=== PATIENT | male | born 1970 | race Caucasian/White ===

== ENCOUNTER 2017-06-28 09:57 | Observation (INO) | payer MEDICAID, SELFPAY ==
[2017-06-28] VITALS (8 sets, daily range): BP systolic 121–141; BP diastolic 73–85; PULSE 76–110; RESP 16–18; TEMP 36.2–37.1; O2SAT 92–95; BMI 26.6; BMI 26.1
--- NOTE | 2017-06-28 10:25 | ED.RN ---
[facility] CONTACTED TO SEE THE PT
--- NOTE | 2017-06-28 10:26 | ED.VISSUMM ---
- ER Visit Summary Date of Service: 06/28/17 Chief Complaint: Alcohol dependence History of Present Illness: The patient is a 47 M is here requesting help with his alcohol drinking. For the past week he has been drinking a gallon of vodka per day. Before that he was drinking about 1/5 per day. His father in April. He also lost his job. He has been drinking to help cope with this. He is admitted here with [facility] in April. His last drink was approximately 5 hours ago. Physical Examination: Vital signs reviewed. HEENT exam unremarkable. Heart is regular rate and rhythm without murmurs. Lungs are clear to auscultation. Abdomen is soft and nontender. Extremities reveal no edema. Skin exam normal. Neurologic exam normal. Patient does appear slightly intoxicated with alcohol Test Results: Alcohol level 409 Emergency Department Course and Treatment: Patient will be admitted to the hospital. [facility] did see him and they will manage his care on the floor Treatment Plan: [] Disposition: Admit Impression: Alcohol dependence This note was generated with [employer] It [employer] dictation software. It may contain incorrect words, spelling, and punctuation that were not noted in review of the chart prior to signing ED Disposition - Plan for ED Patient: Chief Complaint: Subst Abuse Referrals: Wicho Membreno NP-C [Primary Care Provider] -
[2017-06-28 10:50] LABS: Absolute Lymphocyte Count 2.02 X10^3/ul (0.83-4.51); Basophil# 0.03 X10^3/uL; Basophil% 0.6 % (0-1); Eosinophil# 0.03 X10^3/uL; Eosinophils% 0.6 % (0-5); Hematocrit 41.4 % (40-54); Hemoglobin 13.9 g/dl (13.0-16.5); Lymphocyte # 2.02 X10^3/ul (4.0); Lymphocyte % 37.1 % (19-41); Mean Corp Hgb Conc 33.6 g/gl (32-36); Mean Corpuscular Hgb 31.9 pg (27.0-32.0); Mean Platelet Vol. 8.6 fl (6.2-12.0); Monocyte# 0.31 X10^3/uL; Monocyte% 5.7 % (0-10); Neutrophil # 3.04 X10^3/uL (2.7-7.7); Neutrophil % 55.8 % (47-70); Platelet Count 242 K/mm3 (150-450); RBC Distribution Width SD 43.9 fl (35.1-43.9); Red Blood Count 4.36 M/mm3 (4.6-6.2); White Blood Count 5.4 K/mm3 (4.4-11.0)
[2017-06-28 10:54] LABS: POSITIVE COUNT NO; POSITIVE DIFFERENTIAL NO; POSITIVE MORPHOLOGY NO
[2017-06-28 11:13] LABS: ALB/GLOB Ratio 1.2 RATIO (0.9-2.4); AST(SGOT) 67 U/L (15-37); Alanine Aminotransfer ALT/SGPT 61 U/L (16-61); Alkaline Phosphatase 56 U/L (45-117); Anion Gap 14 (5-15); BUN 14 mg/dL (7-18); Calcium,Total 7.9 mg/dL (8.5-10.1); Chloride 107 mmol/L (98-107); Creatinine, Serum 0.93 mg/dL (0.70-1.30); EST Glomerular Filtration Rate 92 mL/min (>60); Est Glom Filt Rate - Afr Amer 111 mL/min (>60); Estimated Creatinine Clearance 97.14 ml/min; Globulin 3.3 g/dL (2.2-4.2); Glucose 72 mg/dL (74-106); Potassium 3.4 mmol/L (3.5-5.1); Protein, Total 7.3 g/dL (6.4-8.2); Sodium Level 146 mmol/L (136-145)
[2017-06-28 12:18] LABS: Amphetamine Urine VISTA NEGATIVE (<1000 ng/mL); Barbiturate Urine VISTA NEGATIVE (< 200 ng/mL); Benzodiazepine Urine VISTA NEGATIVE (< 200 ng/mL); Cocaine Urine VISTA NEGATIVE (< 300 ng/mL); Ecstacy Urine VISTA NEGATIVE (< 500 ng/mL); Methadone Urine VISTA NEGATIVE (< 300 ng/mL); PCP Urine VISTA NEGATIVE (< 25 ng/mL); THC Urine VISTA NEGATIVE (< 50 ng/mL); Vista UDS pH Range 6
[2017-06-28 13:26] LABS: Amylase 74 U/L (25-115); Lipase 324 U/L (73-393)
--- NOTE | 2017-06-28 13:40 | HP.PCM_ITS ---
Problem List (1) Insomnia Status: Acute (2) Continuous chronic alcoholism Status: Chronic (3) Alcohol withdrawal Status: Acute Qualifiers: History of Present Illness Date of Admission: 06/28/17 Chief Complaint: I want to get detoxed from alcohol This is a 47 year old M with history of chronic alcohol use disorder who presented to the emergency room and asked for help to get detoxed. His last drink was about 5 hours prior to coming to the emergency room, his alcohol level was 409. He wants to get detoxed, he does not want to drink anymore. The patient was admitted here in April of last year under the [facility] program after his discharge he did not go for an inpatient or outpatient alcohol rehabilitation program and has restarted drinking heavily. Saw him he was alert and oriented to time place and person he answered questions appropriately , he had mild tremors. Past Medical History Past Medical History (Chronic Problems): Chronic Problems (Last Reviewed 05/24/17 @ 16:48 by ONELIA Portillo) Tinnitus (Chronic) Continuous chronic alcoholism (Chronic) Allergies doxycycline Allergy (Verified 05/13/17 17:53) Rash Home Medications: Ambulatory Orders Medication Instructions Recorded trazodone 50 mg tablet 50 mg PO QHS PRN #30 tab 05/24/17 Surgical History: appendectomy Psychiatric History: No pertinent psych hx Smoking Status: Never smoker - *Family History Maternal History Items: No pertinent history Paternal History Items: - - Alcohol abuse Review of Systems Comment: All Systems were reviewed with pertinent positives mentioned in the HPI above. VTE Information - Inpt Only VTE Present on Admission: No VTE Mechan Device Prophylaxis: SCD's VTE Pharm Prophylaxis ordered?: No - Physical Exam General: Alert, Oriented x3 Neck: Supple, No JVD Lungs: Clear to auscultation, No wheeze Cardiovascular: Regular rate, Normal S1, Normal S2 Abdomen: Bowel Sounds Present, Soft, Non Tender Extremities: No edema Vital Signs Temp Pulse Resp BP Pulse Ox 97.2 F L 89 16 122/76 H 95 06/28/17 09:58 06/28/17 13:07 06/28/17 13:07 06/28/17 13:07 06/28/17 13:07 Assessment/Plan 1. Alcohol withdrawal; the patient will be placed on the [facility] alcohol withdrawal protocol. 2. Chronic alcohol dependency ; the patient is recommended to take part in an alcohol rehabilitation program after his discharge. 3. DVT prophylaxis with SCDs. Code Visit Inpatient E&M: 33750 Init Hosp L3
[2017-06-28] MEDS: QUEtiapine 25 MG Tablet PO (14:26)
[2017-06-28] MEDS: Methocarbamol 750 MG Tablet PO ×2 (14:26→21:35)
[2017-06-28] MEDS: cloNIDine HCl 0.1 MG Tablet PO ×3 (14:26→21:35)
[2017-06-28] MEDS: LORazepam 1 MG Tablet PO ×3 (14:26→21:35)
[2017-06-28] MEDS: Dicyclomine 10 MG Capsule 20 MG PO (14:26)
[2017-06-28] MEDS: Lactated Ringers 1,000 ML 125 ML IV (14:30)
[2017-06-28] MEDS: Pramipexole Di-HCl 0.25 MG Tablet PO (17:28)
[2017-06-28] MEDS: traZODone 50 MG Tablet PO (21:35)
[2017-06-29] VITALS (11 sets, daily range): BP systolic 123–149; BP diastolic 88–101; PULSE 49–108; RESP 14–18; TEMP 36.3–36.8
[2017-06-29] MEDS: LORazepam 1 MG Tablet PO ×5 (02:50→21:57)
[2017-06-29] MEDS: Dicyclomine 10 MG Capsule 20 MG PO ×3 (02:50→18:14)
[2017-06-29] MEDS: cloNIDine HCl 0.1 MG Tablet PO ×4 (02:50→21:55)
[2017-06-29] MEDS: Methocarbamol 750 MG Tablet PO ×2 (07:02→14:01)
[2017-06-29] MEDS: Pramipexole Di-HCl 0.25 MG Tablet PO ×2 (07:02→21:55)
[2017-06-29] MEDS: Tuberculin,Purif.prot.deriv. 50 TU/ML Vial 5 ML ID (10:37)
[2017-06-29] MEDS: QUEtiapine 25 MG Tablet PO ×2 (14:01→23:29)
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
--- NOTE | 2017-06-29 16:39 | PCM.PN.HOSP ---
Subjective: CC: Follow-up on alcohol withdrawal Objective: He Presented in the ED asking to be detoxed from alcohol, he now has symptoms of alcohol withdrawal , he is receiving medical stabilization from the [facility] protocol. Vitals/I&O's: Vital Signs Temp Pulse Resp BP Pulse Ox 97.8 F 77 16 137/95 H 95 06/29/17 13:54 06/29/17 13:54 06/29/17 13:54 06/29/17 13:54 06/28/17 13:07 Oxygen Delivery Method Room Air Weight: 80.286 kg Body Mass Index (BMI) 26.1 Intake and Output for Last 24 Hours 06/27/17 06/28/17 06/29/17 23:59 23:59 23:59 Intake Total 1428 / 1428 1400 / 1400 Output Total 1050 / 1050 Balance 1428 / 1428 350 / 350 General: Alert, Oriented x3 Neck: Supple, No JVD Lungs: Clear to auscultation, No wheeze, No rales Cardiovascular: Regular rate, Normal S1, Normal S2 Abdomen: Bowel Sounds Present, Soft, Non-Distended Extremities: No clubbing Current Medications Clonidine (Catapres) 0.1 mg PO Q4 ZACK Last Admin: 06/29/17 14:01 Dose: 0.1 mg Dicyclomine HCl (Bentyl) 20 mg PO Q6H PRN PRN PRN Reason: abdominal discomfort Last Admin: 06/29/17 10:32 Dose: 20 mg Hydroxyzine Pamoate (Vistaril) 50 mg PO Q6H PRN PRN PRN Reason: Mild Anxiety (score 1/3) Last Admin: 06/29/17 16:24 Dose: 50 mg Lorazepam (Ativan) 1 mg PO Q6H ZACK PRN Reason: Taper Stop: 07/01/17 17:59 Last Admin: 06/29/17 16:24 Dose: 1 mg Methocarbamol (Methocarbamol) 750 mg PO Q6H PRN PRN PRN Reason: Muscle Aches Last Admin: 06/29/17 14:01 Dose: 750 mg Nutritional Formula (Lactose Free) (Ensure Enlive) 120 ml PO 4X/DAY [facility] Last Admin: 06/29/17 14:01 Dose: 120 ml Pramipexole Dihydrochloride (Mirapex) 0.25 mg PO Q12H PRN PRN PRN Reason: Restless legs Last Admin: 06/29/17 07:02 Dose: 0.25 mg Quetiapine Fumarate (Seroquel) 25 mg PO Q6H PRN PRN PRN Reason: Moderate Anxiety (score 2/3) Last Admin: 06/29/17 14:01 Dose: 25 mg Trazodone HCl (Desyrel) 50 mg PO QHS PRN PRN Reason: insomnia Last Admin: 06/28/17 21:35 Dose: 50 mg Assessment/Plan 1. Alcohol withdrawal;we will continue on the [facility] alcohol withdrawal protocol. 2. Chronic alcohol dependency ; the patient is recommended to take part in an alcohol rehabilitation program after his discharge. 3. DVT prophylaxis with SCDs. Code Visit Inpatient E&M: 20415 Subs Hosp L2
--- NOTE | 2017-06-29 16:42 | PN_ITS ---
Subjective: CC: Follow-up on alcohol withdrawal Objective: He Presented in the ED asking to be detoxed from alcohol, he now has symptoms of alcohol withdrawal , he is receiving medical stabilization from the [facility] protocol. Vitals/I&O's: Vital Signs Temp Pulse Resp BP Pulse Ox 97.8 F 77 16 137/95 H 95 06/29/17 13:54 06/29/17 13:54 06/29/17 13:54 06/29/17 13:54 06/28/17 13:07 Oxygen Delivery Method Room Air Weight: 80.286 kg Body Mass Index (BMI) 26.1 Intake and Output for Last 24 Hours 06/27/17 06/28/17 06/29/17 23:59 23:59 23:59 Intake Total 1428 / 1428 1400 / 1400 Output Total 1050 / 1050 Balance 1428 / 1428 350 / 350 General: Alert, Oriented x3 Neck: Supple, No JVD Lungs: Clear to auscultation, No wheeze, No rales Cardiovascular: Regular rate, Normal S1, Normal S2 Abdomen: Bowel Sounds Present, Soft, Non-Distended Extremities: No clubbing Current Medications Clonidine (Catapres) 0.1 mg PO Q4 ZACK Last Admin: 06/29/17 14:01 Dose: 0.1 mg Dicyclomine HCl (Bentyl) 20 mg PO Q6H PRN PRN PRN Reason: abdominal discomfort Last Admin: 06/29/17 10:32 Dose: 20 mg Hydroxyzine Pamoate (Vistaril) 50 mg PO Q6H PRN PRN PRN Reason: Mild Anxiety (score 1/3) Last Admin: 06/29/17 16:24 Dose: 50 mg Lorazepam (Ativan) 1 mg PO Q6H ZACK PRN Reason: Taper Stop: 07/01/17 17:59 Last Admin: 06/29/17 16:24 Dose: 1 mg Methocarbamol (Methocarbamol) 750 mg PO Q6H PRN PRN PRN Reason: Muscle Aches Last Admin: 06/29/17 14:01 Dose: 750 mg Nutritional Formula (Lactose Free) (Ensure Enlive) 120 ml PO 4X/DAY [facility] Last Admin: 06/29/17 14:01 Dose: 120 ml Pramipexole Dihydrochloride (Mirapex) 0.25 mg PO Q12H PRN PRN PRN Reason: Restless legs Last Admin: 06/29/17 07:02 Dose: 0.25 mg Quetiapine Fumarate (Seroquel) 25 mg PO Q6H PRN PRN PRN Reason: Moderate Anxiety (score 2/3) Last Admin: 06/29/17 14:01 Dose: 25 mg Trazodone HCl (Desyrel) 50 mg PO QHS PRN PRN Reason: insomnia Last Admin: 06/28/17 21:35 Dose: 50 mg Assessment/Plan 1. Alcohol withdrawal;we will continue on the [facility] alcohol withdrawal protocol. 2. Chronic alcohol dependency ; the patient is recommended to take part in an alcohol rehabilitation program after his discharge. 3. DVT prophylaxis with SCDs. Code Visit Inpatient E&M: 59124 Subs Hosp L2
[2017-06-29] MEDS: traZODone 50 MG Tablet PO (21:55)
[2017-06-30] VITALS (7 sets, daily range): BP systolic 118–154; BP diastolic 81–112; PULSE 74–103; RESP 16–19; TEMP 36.2–37.1
[2017-06-30] MEDS: cloNIDine HCl 0.1 MG Tablet PO ×6 (02:36→21:11)
[2017-06-30] MEDS: Methocarbamol 750 MG Tablet PO ×3 (02:36→17:35)
[2017-06-30] MEDS: Dicyclomine 10 MG Capsule 20 MG PO ×2 (02:37→09:31)
[2017-06-30] MEDS: LORazepam 1 MG Tablet PO ×6 (05:03→21:11)
[2017-06-30] MEDS: QUEtiapine 25 MG Tablet PO ×3 (06:39→19:16)
--- NOTE | 2017-06-30 06:53 | NURSING ---
Patient came to nurses station about 0600 wanting to leave AMA. Patient at this time is still having auditory and visual hallucinations as well as disorientation. Patient took a shower during the night and afterwards packed his belongings up and thought that he was discharged. Patient is currently dressed in mesh shorts, a tshirt and sneakers, he has a jacket. Patient got in contact with his friend Svetlana to ask if she would come and pick him up. Charge Nurse CARLOS Bingham talked to Svetlana on the phone and let her know that patient needs a ride home if he is to be discharged at this time due to the weather conditions. Svetlana patients primary contact talked to the patient and convinced him to stay one more night at this time. Patient is cooperative and agreeable to stay one more night. Patient is in his room resting at this time.
--- NOTE | 2017-06-30 07:24 | NURSING ---
Soy Russell was trying to leave [facility] and insisted his friend Svetlana, who is his medical contact, was outside to pick him up. I called Svetlana and she informed me she was not outside and did not tell him she was picking him up. She told me she would call and talk to him.
--- NOTE | 2017-06-30 09:57 | PCM.PN.HOSP ---
Subjective: CC: Alcohol withdrawal This is a 47 year old M with history of chronic alcohol use disorder who presented to the emergency room and asked for help to get detoxed. He was admitted in April of last year under the [facility] program but he resumed alcohol consumption after his discharge. The patient was agitating to sign out AGAINST MEDICAL ADVICE but has now agreed to stay. Vitals/I&O's: Vital Signs Temp Pulse Resp BP Pulse Ox 97.4 F L 100 16 120/81 H 95 06/30/17 09:34 06/30/17 09:34 06/30/17 09:34 06/30/17 09:34 06/28/17 13:07 Oxygen Delivery Method Room Air Weight: 80.286 kg Body Mass Index (BMI) 26.1 Intake and Output for Last 24 Hours 06/28/17 06/29/17 06/30/17 23:59 23:59 23:59 Intake Total 1428 / 1428 1400 / 1400 960 / 960 Output Total 1050 / 1050 300 / 300 Balance 1428 / 1428 350 / 350 660 / 660 General: Alert, Oriented x3 HEENT: Atraumatic Oral: Moist Mucosa Neck: Supple, No JVD Lungs: Clear to auscultation, No wheeze Cardiovascular: Regular rate, Normal S1, Normal S2 Abdomen: Bowel Sounds Present, Soft, Non Tender Extremities: No clubbing, No edema Current Medications Clonidine (Catapres) 0.1 mg PO Q4 ZACK Last Admin: 06/30/17 09:31 Dose: 0.1 mg Dicyclomine HCl (Bentyl) 20 mg PO Q6H PRN PRN PRN Reason: abdominal discomfort Last Admin: 06/30/17 09:31 Dose: 20 mg Hydroxyzine Pamoate (Vistaril) 50 mg PO Q6H PRN PRN PRN Reason: Mild Anxiety (score 1/3) Last Admin: 06/30/17 06:39 Dose: 50 mg Lorazepam (Ativan) 1 mg PO Q6H ZACK PRN Reason: Taper Stop: 07/01/17 17:59 Last Admin: 06/30/17 09:31 Dose: 1 mg Lorazepam (Ativan) 1 mg IV Q6H PRN PRN PRN Reason: AGITATION Methocarbamol (Methocarbamol) 750 mg PO Q6H PRN PRN PRN Reason: Muscle Aches Last Admin: 06/30/17 09:32 Dose: 750 mg Nutritional Formula (Lactose Free) (Ensure Enlive) 120 ml PO 4X/DAY [facility] Last Admin: 06/30/17 09:31 Dose: 120 ml Pramipexole Dihydrochloride (Mirapex) 0.25 mg PO Q12H PRN PRN PRN Reason: Restless legs Last Admin: 06/29/17 21:55 Dose: 0.25 mg Quetiapine Fumarate (Seroquel) 25 mg PO Q6H PRN PRN PRN Reason: Moderate Anxiety (score 2/3) Last Admin: 06/30/17 06:39 Dose: 25 mg Trazodone HCl (Desyrel) 50 mg PO QHS PRN PRN Reason: insomnia Last Admin: 06/29/17 21:55 Dose: 50 mg Assessment/Plan 1. Acute Alcohol withdrawal;we will continue on the [facility] alcohol withdrawal protocol. He is encouraged to stay in the hospital to complete the treatment program. 2. Chronic alcohol dependency ; the patient is recommended to take part in an alcohol rehabilitation program after his discharge. 3. DVT prophylaxis with SCDs.
--- NOTE | 2017-06-30 11:14 | NURSING ---
pt now has sitter with him and ambulated halls
[2017-06-30] MEDS: Pramipexole Di-HCl 0.25 MG Tablet PO (12:40)
--- NOTE | 2017-06-30 15:35 | CHAPLAIN ---
Type of Pastoral Visit ___ Initial Visit _x__ Follow-up Visit ___ On-call Visit ___ General Patient Visit ___ Spiritual Assessment ___ Family Conference ___ Bereavement ___ Rapid Response ___ Code Blue ___ Other (describe below) Pastoral Care Referral From _x__ Patient ___ Family ___ Nurse ___ Physician ___ Stadium Manager ___ Grounds Cleaner ___ Other (describe below) Sacrament/Intervention _x__ Active listening ___ Anointing ___ Sabianist ___ Bereavement ___ Communion ___ Amaya exploration ___ ___ Life review ___ Prayer ___ Reconciliation ___ Sacrament of Sick _x__ Supportive presence ___ Wedding _x__ Other (describe below) Pastoral Comments entered room as RN was finishing up with patient meds; ANIMAL CARE ASSISTANT appeared and said pt is having difficult time during this medical stabilization and has had someone with him to watch him; this manager program management sat with patient for some time as pt rambled on about things, most of which did not make much sense; pt was seeing things that were not in the room; pt was pleasant but did not have a clear knowledge of where he was or what he was doing; ANIMAL CARE ASSISTANT returned to room and we ordered dinner for pt; this manager program management left room and ANIMAL CARE ASSISTANT took patient in hallway for a walk
--- NOTE | 2017-06-30 21:16 | NURSING ---
pt pacing in hallways and in room. assessment completed and medications given. encouraged pt to rest in bed and attempt to sleep. BIG DATA LEAD sitting in room. will continue to monitor.
[2017-07-01] MEDS: LORazepam 1 MG Tablet PO ×2 (01:09→09:12)
[2017-07-01] MEDS: cloNIDine HCl 0.1 MG Tablet PO ×2 (01:09→09:12)
[2017-07-01] MEDS: traZODone 50 MG Tablet PO (01:10)
[2017-07-01 01:15] VITALS: BP 159/116; PULSE 90; RESP 18; TEMP 36.6
[2017-07-01 09:10] VITALS: BP 140/101; PULSE 92; RESP 16; TEMP 36.7
--- NOTE | 2017-07-01 09:51 | PCM.DC ---
You will use the following diet at home:: No restrictions Discharge Activity: Return to Normal Activity Weight Bearing Status: Full weight bearing Additional Instructions: do not drink alcohol and take Librium Allergies/Adverse Reactions: Allergies doxycycline Allergy (Verified 05/13/17 17:53) Rash Medications to take at Discharge trazodone 50 mg tablet 50 mg PO QHS PRN #30 tab 05/24/17 Chlordiazepoxide [Librium] 25 mg PO 4X/DAY PRN PRN #30 cap 07/01/17 The following prescriptions were given: Chlordiazepoxide [Librium] 25 mg PO 4X/DAY PRN PRN #30 cap PRN Reason: Anxiety Primary Care Physician: Wicho Membreno NP-C [Primary Care Provider] - Please follow up with your Primary Care Physician in: in 1-2 weeks
--- NOTE | 2017-07-01 10:06 | NURSING ---
Dr. Steinberg wrote prescription for librium at discharge and reports that on occasion insurance might not cover anxiety meds and that it is possible patient will have to pay for medication out of pocket. Notified CARLOS Johnson and she is educating patient at this time in preparation for discharge.
--- NOTE | 2017-07-01 11:06 | PCM.DC.SUM ---
Discharge Date and Diagnosis Date of Admission: 06/28/17 Date of Discharge: 07/01/17 - Primary Discharge Diagnosis #1 acute alcohol withdrawal #2 alcoholism #3 alcohol intoxication - Secondary Discharge Diagnosis Chronic Problems (Last Reviewed 05/24/17 @ 16:48 by GET PortilloC) Tinnitus (Chronic) Continuous chronic alcoholism (Chronic) Hospital Course and Treatment Operations: None Procedures: None Summary of Care Provided: The patient is a 47 year old M was seen in the emergency room at [facility] requesting help with his alcohol addiction. Patient was excepted into the medical stabilization program at [facility] from the emergency room. His alcohol level checked in the ER was 409, he was directly admitted to [place] [address] under the medical stabilization program. Orders were entered using the medical stabilization order sets. Patient had some episodes of hallucinations during his hospitalization but his hospitalization was otherwise uneventful. On 07/01/17, patient was seen and examined and felt to be in stable condition for discharge home. Patient was given a prescription for Librium at the time of discharge and cautioned not to drink alcohol while taking this medication. Discharge Activity: Return to Normal Activity Weight Bearing Status: Full weight bearing Home Medications: Medications to take at Discharge trazodone 50 mg tablet 50 mg PO QHS PRN #30 tab 05/24/17 Chlordiazepoxide [Librium] 25 mg PO 4X/DAY PRN PRN #30 cap 07/01/17 Following Prescrptions Were Given to Patient: Chlordiazepoxide [Librium] 25 mg PO 4X/DAY PRN PRN #30 cap PRN Reason: Anxiety Primary Care Physician: Wicho Membreno EMERGENCY GENERATOR MECHANIC-C [Primary Care Provider] - Please follow up with your Primary Care Physician in: in 1-2 weeks Disposition: Home Minutes spent on discharge:: 32 Patient Condition:: Stable Meaningful Use Info Meaningful Use Diagnoses (Choose all that apply): None applicable Code Visit Inpatient E&M: 47969 Disch Hosp
--- NOTE | 2017-07-01 11:13 | DS.PCM_ITS ---
Discharge Date and Diagnosis Date of Admission: 06/28/17 Date of Discharge: 07/01/17 - Primary Discharge Diagnosis #1 acute alcohol withdrawal #2 alcoholism #3 alcohol intoxication - Secondary Discharge Diagnosis Chronic Problems (Last Reviewed 05/24/17 @ 16:48 by GET PortilloC) Tinnitus (Chronic) Continuous chronic alcoholism (Chronic) Hospital Course and Treatment Operations: None Procedures: None Summary of Care Provided: The patient is a 47 year old M was seen in the emergency room at [facility] requesting help with his alcohol addiction. Patient was excepted into the medical stabilization program at [facility] from the emergency room. His alcohol level checked in the ER was 409, he was directly admitted to [place] [address] under the medical stabilization program. Orders were entered using the medical stabilization order sets. Patient had some episodes of hallucinations during his hospitalization but his hospitalization was otherwise uneventful. On 07/01/17, patient was seen and examined and felt to be in stable condition for discharge home. Patient was given a prescription for Librium at the time of discharge and cautioned not to drink alcohol while taking this medication. Discharge Activity: Return to Normal Activity Weight Bearing Status: Full weight bearing Home Medications: Medications to take at Discharge trazodone 50 mg tablet 50 mg PO QHS PRN #30 tab 05/24/17 Chlordiazepoxide [Librium] 25 mg PO 4X/DAY PRN PRN #30 cap 07/01/17 Following Prescrptions Were Given to Patient: Chlordiazepoxide [Librium] 25 mg PO 4X/DAY PRN PRN #30 cap PRN Reason: Anxiety Primary Care Physician: Wicho Membreno STRUCTURES MECHANIC-C [Primary Care Provider] - Please follow up with your Primary Care Physician in: in 1-2 weeks Disposition: Home Minutes spent on discharge:: 32 Patient Condition:: Stable Meaningful Use Info Meaningful Use Diagnoses (Choose all that apply): None applicable Code Visit Inpatient E&M: 44288 Disch Hosp
== END 2017-07-01 11:15 | disposition home or self-care (01) | DRG 435 ==
LOC: ED 10:47 → MS2 13:27
PROVIDERS: Admitting Provider Internal Medicine; Emergency Provider Emergency Medicine; Family Provider Nurse Practitioner Family; PCP Nurse Practitioner Family; Visit Provider Internal Medicine
DX: F10.239 Alcohol dependence with withdrawal, unspecified (principal); F10.229 Alcohol dependence with intoxication, unspecified; G47.00 Insomnia, unspecified; F41.9 Anxiety disorder, unspecified
CPT/HCPCS: 80053; 80307; 80320; 82150; 83690; 85025; 97802; 99218; 99283; J7120; G0378; G0480